=== PATIENT | female | born 1980 | race Hispanic/Latino ===

== ENCOUNTER 2018-07-08 14:10 | Emergency (ER) | payer OTHER ==
[2018-07-08] MEDS ORDERED: ZOFRAN IV ONE (14:21)
[2018-07-08] MEDS ORDERED: TORADOL IV ONE (14:21)
[2018-07-08] MEDS ORDERED: NACL 0.9% 1000 ML 1,000 ML IV ONE (14:21)
[2018-07-08 14:32] VITALS: BP 132/72
[2018-07-08 14:58] LABS: Basophils # (Auto) 0.2 K/mm3 (0.0-0.1); Basophils % (Auto) 1.3 % (0.0-1.8); Eosinophils # (Auto) 0.2 K/mm3 (0.0-0.4); Eosinophils % (Auto) 1.6 % (0.0-4.3); Hematocrit 43.3 % (30.3-42.9); Hemoglobin 13.5 gm/dl (10.1-14.3); Lymphocytes % (Auto) 26.1 % (13.4-35.0); Mean Corpuscular HGB Conc 31 % (30-34); Mean Corpuscular Volume 83 fl (79-97); Monocytes % (Auto) 8.7 % (0.0-7.3); Platelet Count 299 K/mm3 (140-440); Red Blood Count 5.25 M/mm3 (3.65-5.03); Red Cell Distribution Width 16.9 % (13.2-15.2)
[2018-07-08 14:59] LABS: Mean Corpuscular Hemoglobin 26 pg (28-32)
[2018-07-08 15:05] LABS: Bacteria,Urine 1+ /HPF (Negative); Bilirubin,Urine NEG (Negative); Blood,Urine MOD (Negative); Color,Urine Yellow (Yellow); Mucus,Urine FEW /HPF; Protein,Urine <15 mg/dL mg/dL (Negative); Urobilinogen,Urine < 2.0 mg/dL (<2.0)
[2018-07-08] MEDS ORDERED: MORPHINE IV ONE ×2 (15:07→16:04)
[2018-07-08 15:17] LABS: BUN/Creatinine Ratio 9; Blood Urea Nitrogen 6 mg/dL (7-17); Calcium 9.2 mg/dL (8.4-10.2); Hemolysis Index 20
[2018-07-08] MEDS ORDERED: MORPHINE ONE (16:09)
--- NOTE | 2018-07-08 17:04 | Emergency Department Report ---
ED Abdominal Pain HPI - General Chief Complaint: Abdominal Pain Stated Complaint: PAIN Time Seen by Provider: 07/08/18 14:20 Source: patient Mode of arrival: Ambulatory Limitations: No Limitations - History of Present Illness Initial Comments: She is a 2-year-old female who is presenting with left greater than right flank pain and suprapubic discomfort for the past day. Patient states is more she fell 5 however throughout the day she is developing worsening flank pain. Patient's has some nausea but no vomiting. Patient denies fever. Patient states it is been no dysuria but she does have some hematuria present and some urinary frequency. Patient has a history of kidney stones in the past. She states that the pain is 8 out of 10 in severity at this time. Severity scale (0 -10): 7 - Related Data Previous Rx's Medication Instructions Recorded Last Taken Type Ciprofloxacin HCl [Cipro] 500 mg PO BID #14 tablet 07/08/18 Unknown Rx Ibuprofen [Motrin] 600 mg PO Q8H PRN #20 tablet 07/08/18 Unknown Rx Phenazopyridine [Pyridium] 100 mg PO TID 2 Days tab 07/08/18 Unknown Rx traMADol [Ultram] 50 mg PO Q6HR PRN #12 tablet 07/08/18 Unknown Rx Allergies Allergy/AdvReac Type Severity Reaction Status Date / Time latex Allergy Itching Verified 07/08/18 14:28 prednisone Allergy Itching Verified 07/08/18 14:30 ED Review of Systems ROS: Stated complaint: PAIN Other details as noted in HPI Comment: All other systems reviewed and negative ED Past Medical Hx - Past Medical History Previous Medical History?: No - Surgical History Past Surgical History?: No - Medications Home Medications: Home Medications Medication Instructions Recorded Confirmed Last Taken Type Ciprofloxacin HCl [Cipro] 500 mg PO BID #14 tablet 07/08/18 Unknown Rx Ibuprofen [Motrin] 600 mg PO Q8H PRN #20 tablet 07/08/18 Unknown Rx Phenazopyridine [Pyridium] 100 mg PO TID 2 Days tab 07/08/18 Unknown Rx traMADol [Ultram] 50 mg PO Q6HR PRN #12 tablet 07/08/18 Unknown Rx ED Physical Exam - General Limitations: No Limitations General appearance: alert, in distress - Head Head exam: Present: atraumatic, normocephalic - Eye Eye exam: Present: normal appearance - ENT ENT exam: Present: mucous membranes moist - Neck Neck exam: Present: normal inspection - Respiratory Respiratory exam: Present: normal lung sounds bilaterally. Absent: respiratory distress, wheezes, rales, rhonchi - Cardiovascular Cardiovascular Exam: Present: regular rate, normal rhythm. Absent: systolic murmur, diastolic murmur, rubs, gallop - GI/Abdominal GI/Abdominal exam: Present: soft, tenderness, guarding, rebound, rigid, normal bowel sounds. Absent: distended - Extremities Exam Extremities exam: Present: normal inspection - Back Exam Back exam: Present: normal inspection, CVA tenderness (L) - Neurological Exam Neurological exam: Present: alert, oriented X3 - Psychiatric Psychiatric exam: Present: normal affect, normal mood - Skin Skin exam: Present: warm, dry, intact, normal color. Absent: rash ED Course Vital Signs 07/08/18 14:24 Temperature 97.8 F Pulse Rate 67 Respiratory 20 Rate Blood Pressure 132/72 O2 Sat by Pulse 100 Oximetry ED Medical Decision Making - Lab Data Result diagrams: 07/08/18 14:34 07/08/18 14:34 Lab Results 07/08/18 07/08/18 07/08/18 Range/Units 14:34 14:34 14:34 WBC 11.4 H (4.5-11.0) K/mm3 RBC 5.25 H (3.65-5.03) M/mm3 Hgb 13.5 (10.1-14.3) gm/dl Hct 43.3 H (30.3-42.9) % MCV 83 (79-97) fl MCH 26 L (28-32) pg MCHC 31 (30-34) % RDW 16.9 H (13.2-15.2) % Plt Count 299 (140-440) K/mm3 Lymph % (Auto) 26.1 (13.4-35.0) % [place] % (Auto) 8.7 H (0.0-7.3) % Eos % (Auto) 1.6 (0.0-4.3) % Baso % (Auto) 1.3 (0.0-1.8) % Lymph # 3.0 (1.2-5.4) K/mm3 [place] # 1.0 H (0.0-0.8) K/mm3 Eos # 0.2 (0.0-0.4) K/mm3 Baso # 0.2 H (0.0-0.1) K/mm3 Seg Neutrophils % 62.3 (40.0-70.0) % Seg Neutrophils # 7.1 (1.8-7.7) K/mm3 Sodium 143 (137-145) mmol/L Potassium 3.7 (3.6-5.0) mmol/L Chloride 101.5 (98-107) mmol/L Carbon Dioxide 25 (22-30) mmol/L Anion Gap 20 mmol/L BUN 6 L (7-17) mg/dL Creatinine 0.7 (0.7-1.2) mg/dL Estimated GFR > 60 ml/min BUN/Creatinine Ratio 9 % Glucose 85 (65-100) mg/dL Calcium 9.2 (8.4-10.2) mg/dL HCG, Qual Negative (Negative) Urine Color (Yellow) Urine Turbidity (Clear) Urine pH (5.0-7.0) Ur Specific [place] (1.003-1.030) Urine Protein (Negative) mg/dL Urine Glucose (UA) (Negative) mg/dL Urine Ketones (Negative) mg/dL Urine Blood (Negative) Urine Nitrite (Negative) Urine Bilirubin (Negative) Urine Urobilinogen (<2.0) mg/dL Ur Leukocyte Esterase (Negative) Urine WBC (Auto) (0.0-6.0) /HPF Urine RBC (Auto) (0.0-6.0) /HPF U Epithel Cells (Auto) (0-13.0) /HPF Urine Bacteria (Auto) (Negative) /HPF Urine Mucus /HPF 07/08/18 Range/Units Unknown WBC (4.5-11.0) K/mm3 RBC (3.65-5.03) M/mm3 Hgb (10.1-14.3) gm/dl Hct (30.3-42.9) % MCV (79-97) fl MCH (28-32) pg MCHC (30-34) % RDW (13.2-15.2) % Plt Count (140-440) K/mm3 Lymph % (Auto) (13.4-35.0) % [place] % (Auto) (0.0-7.3) % Eos % (Auto) (0.0-4.3) % Baso % (Auto) (0.0-1.8) % Lymph # (1.2-5.4) K/mm3 [place] # (0.0-0.8) K/mm3 Eos # (0.0-0.4) K/mm3 Baso # (0.0-0.1) K/mm3 Seg Neutrophils % (40.0-70.0) % Seg Neutrophils # (1.8-7.7) K/mm3 Sodium (137-145) mmol/L Potassium (3.6-5.0) mmol/L Chloride (98-107) mmol/L Carbon Dioxide (22-30) mmol/L Anion Gap mmol/L BUN (7-17) mg/dL Creatinine (0.7-1.2) mg/dL Estimated GFR ml/min BUN/Creatinine Ratio % Glucose (65-100) mg/dL Calcium (8.4-10.2) mg/dL HCG, Qual (Negative) Urine Color Yellow (Yellow) Urine Turbidity Slightly-cloudy (Clear) Urine pH 6.0 (5.0-7.0) Ur Specific [place] 1.012 (1.003-1.030) Urine Protein <15 mg/dl (Negative) mg/dL Urine Glucose (UA) Neg (Negative) mg/dL Urine Ketones Neg (Negative) mg/dL Urine Blood Mod (Negative) Urine Nitrite Neg (Negative) Urine Bilirubin Neg (Negative) Urine Urobilinogen < 2.0 (<2.0) mg/dL Ur Leukocyte Esterase Mod (Negative) Urine WBC (Auto) 3.0 (0.0-6.0) /HPF Urine RBC (Auto) 8.0 (0.0-6.0) /HPF U Epithel Cells (Auto) 13.0 (0-13.0) /HPF Urine Bacteria (Auto) 1+ (Negative) /HPF Urine Mucus Few /HPF - Radiology Data No evidence of renal calculi or renal obstruction. Right renal pelvis and more prominent than left of uncertain etiology. As a tiny umbilical hernia and mild fatty liver. - Medical Decision Making Is a 38-year-old female presenting with flank pain. Patient has some hematuria and evidence of mild urinary tract infection. No stones were seen at this time however the collecting system was slightly prominent as just a possible recently passed stone. Patient's pain has improved with pain meds. Critical care attestation.: If time is entered above; I have spent that time in minutes in the direct care of this critically ill patient, excluding procedure time. ED Disposition Clinical Impression: Acute cystitis Qualifiers: Hematuria presence: with hematuria Qualified Code(s): N30.01 - Acute cystitis with hematuria Disposition: TO HOME OR SELFCARE Is pt being admited?: No Does the pt Need Aspirin: No Condition: Stable Instructions: Urinary Tract Infection in Women (ED) Referrals: PRIMARY CARE [Primary Care Provider] - 3-5 Days Time of Disposition: 17:05
--- NOTE | 2018-07-09 10:27 | Cat Scan Report ---
FINAL REPORT EXAM: CT ABD AND PELVIS WO CONTRAST HISTORY: LEFT FLANK PAIN TECHNIQUE: Unenhanced stone protocol CT of the abdomen and pelvis at 2.5 millimeter axial increments. Coronal and sagittal reconstruction was also performed. PRIORS: None. FINDINGS: There is mild prominence of the right collecting system compared to the left. However, there is no evidence for renal calculi or significant hydronephrosis. No evidence for ureteral or bladder calculus is seen. No evidence for renal or bladder mass is noted. 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 There is focal area of sparing adjacent to the gallbladder fossa. The spleen, pancreas, gallbladder, and adrenal glands are unremarkable. No evidence for retroperitoneal or pelvic lymphadenopathy is seen. The bowel loops have normal caliber. No fluid collection, inflammatory change, or free air is seen within the abdomen or pelvis. The appendix is not visualized. There is a tiny periumbilical hernia containing only fat. Within the pelvis, the uterus is normal. Endometrial low-density measures 16 mm in thickness which can be normal for a premenopausal female. This should be correlated clinically. Bilateral tubal ligation clips are noted. Images through the upper abdomen include the lung bases which are expanded and clear. Bony structures show no focal abnormalities. IMPRESSION: 1. No evidence for renal calculi or renal obstruction. Right renal pelvis is more prominent than the left , of certain etiology. 2. Tiny umbilical hernia 3. Mild fatty liver 4. Endometrial stripe thickness is upper limits normal for premenopausal female which should be correlated clinically.
== END 2018-07-08 17:20 | disposition home or self-care (01) ==
LOC: ED 14:10
DX: N30.01 Acute cystitis with hematuria (principal); Z91.040 Latex allergy status; Z88.8 Allergy status to other drugs, medicaments and biological substances
CPT/HCPCS: 36415; 74176; 80048; 81001; 84703; 85025; 96361; 96374; 96375; 96376; 99284; J1885; J2270; J2405; J7030

== ENCOUNTER 2019-01-05 16:21 | Emergency (ER) | payer OTHER ==
--- NOTE | 2019-01-05 16:35 | Emergency Department Report ---
Blank Doc - Documentation Documentation: This is a 38-year-old female that presents with abdominal pain, left flank pain, and n/v with some dizziness. This initial assessment/diagnostic orders/clinical plan/treatment(s) is/are subject to change based on patient's health status, clinical progression and re- assessment by fellow clinical providers in the ED. Further treatment and workup at subsequent clinical providers discretion. Patient/guardians urged not to elope from the ED as their condition may be serious if not clinically assessed and managed. Initial orders include: 1- Patient sent to [facility] for further evaluation and treatment 2- labs 3- UA
[2019-01-05 16:37] VITALS: BP 116/82
[2019-01-05 17:00] LABS: Basophils # (Auto) 0.2 K/mm3 (0.0-0.1); Basophils % (Auto) 1.3 % (0.0-1.8); Eosinophils # (Auto) 0.2 K/mm3 (0.0-0.4); Eosinophils % (Auto) 1.7 % (0.0-4.3); Hematocrit 38.8 % (30.3-42.9); Lymphocytes # (Auto) 2.6 K/mm3 (1.2-5.4); Lymphocytes % (Auto) 21.3 % (13.4-35.0); Mean Corpuscular HGB Conc 34 % (30-34); Mean Corpuscular Volume 81 fl (79-97); Monocytes # (Auto) 0.9 K/mm3 (0.0-0.8); Monocytes % (Auto) 7.4 % (0.0-7.3); Platelet Count 349 K/mm3 (140-440); Red Blood Count 4.76 M/mm3 (3.65-5.03)
[2019-01-05] MEDS ORDERED: TORADOL IV ONE (17:15)
[2019-01-05] MEDS ORDERED: REGLAN IV ONE (17:15)
[2019-01-05] MEDS ORDERED: BENADRYL PO ONE (17:15)
[2019-01-05] MEDS ORDERED: NACL 0.9% 1000 ML 1,000 ML IV ONE (17:15)
[2019-01-05 18:02] LABS: Alanine Aminotransferase 24 units/L (7-56); BUN/Creatinine Ratio 16; Blood Urea Nitrogen 11 mg/dL (7-17); Calcium 9.3 mg/dL (8.4-10.2); Hemolysis Index 5
[2019-01-05 18:03] LABS: Bilirubin,Direct < 0.2 mg/dL (0-0.2)
--- NOTE | 2019-01-05 18:33 | Emergency Department Report ---
<JASMIN MORALES - Last Filed: 01/06/19 04:37> ED Abdominal Pain HPI - General Chief Complaint: Abdominal Pain Stated Complaint: LFT SIDE SHARP PAIN/DIZZY Time Seen by Provider: 01/05/19 16:34 Source: patient Mode of arrival: Wheelchair Limitations: No Limitations - History of Present Illness Initial Comments: Pt is a 38 yo female who presents with c/o left sided flank pain radiating to the LLQ that began 1 week ago. The patient states she has associated dizziness, lightheadedness, and a right sided PEDERSON. She has a hx of migraines and is on remeron, she states this PEDERSON feels similar to previous migraines. She states she did take naproxen with some relief. She denies any N/V or fever. She does not report any numbness, weakness, vision disturbances, or speech disturbance. The patient has a hx of frequent kidney stones and sees Dr. Lowery. She states she has passed previous stones on her own with no intervention. Severity scale (0 -10): 10 - Related Data Previous Rx's Medication Instructions Recorded Last Taken Type Ibuprofen [Motrin 600 MG tab] 600 mg PO Q8H PRN #20 tablet 07/08/18 Unknown Rx traMADol [Ultram 50 MG tab] 50 mg PO Q6HR PRN #12 tablet 07/08/18 Unknown Rx Sulfamethoxazole/Trimethoprim 1 each PO BID 3 Days #6 tablet 01/05/19 Unknown Rx [Bactrim DS TAB] Allergies Allergy/AdvReac Type Severity Reaction Status Date / Time latex Allergy Itching Verified 07/08/18 14:28 prednisone Allergy Itching Verified 07/08/18 14:30 ED Review of Systems Comment: All other systems reviewed and negative ED Past Medical Hx - Past Medical History Hx Kidney Stones: Yes Additional medical history: IC - Surgical History Past Surgical History?: No - Social History Smoking Status: Never Smoker Substance Use Type: None - Medications Home Medications: Home Medications Medication Instructions Recorded Confirmed Last Taken Type Ibuprofen [Motrin 600 MG tab] 600 mg PO Q8H PRN #20 tablet 07/08/18 Unknown Rx traMADol [Ultram 50 MG tab] 50 mg PO Q6HR PRN #12 tablet 07/08/18 Unknown Rx Sulfamethoxazole/Trimethoprim 1 each PO BID 3 Days #6 tablet 04/08/19 Unknown Rx [Bactrim DS TAB] ED Physical Exam - General Limitations: No Limitations General appearance: alert, in no apparent distress - Head Head exam: Present: atraumatic, normocephalic - Eye Eye exam: Present: normal appearance - ENT ENT exam: Present: mucous membranes dry (mildly) - Respiratory Respiratory exam: Present: normal lung sounds bilaterally. Absent: respiratory distress, wheezes, rales, rhonchi, stridor, chest wall tenderness, accessory muscle use, decreased breath sounds, prolonged expiratory - Cardiovascular Cardiovascular Exam: Present: regular rate, normal rhythm, normal heart sounds. Absent: systolic murmur, diastolic murmur, rubs, gallop - GI/Abdominal GI/Abdominal exam: Present: soft, tenderness (Left CVAT, LLQ tenderness ), normal bowel sounds. Absent: distended, guarding, rebound, rigid - Neurological Exam Neurological exam: Present: alert, oriented X3, CN II-XII intact, normal gait. Absent: motor sensory deficit - Psychiatric Psychiatric exam: Present: normal affect, normal mood - Skin Skin exam: Present: warm, dry, intact ED Medical Decision Making - Lab Data Result diagrams: 01/05/19 16:39 01/05/19 16:39 Lab Results 01/05/19 01/05/19 01/05/19 Range/Units 16:39 16:39 16:39 WBC 12.2 H (4.5-11.0) K/mm3 RBC 4.76 (3.65-5.03) M/mm3 Hgb 13.0 (10.1-14.3) gm/dl Hct 38.8 (30.3-42.9) % MCV 81 (79-97) fl MCH 27 L (28-32) pg MCHC 34 (30-34) % RDW 16.0 H (13.2-15.2) % Plt Count 349 (140-440) K/mm3 Lymph % (Auto) 21.3 (13.4-35.0) % [place] % (Auto) 7.4 H (0.0-7.3) % Eos % (Auto) 1.7 (0.0-4.3) % Baso % (Auto) 1.3 (0.0-1.8) % Lymph # 2.6 (1.2-5.4) K/mm3 [place] # 0.9 H (0.0-0.8) K/mm3 Eos # 0.2 (0.0-0.4) K/mm3 Baso # 0.2 H (0.0-0.1) K/mm3 Seg Neutrophils % 68.3 (40.0-70.0) % Seg Neutrophils # 8.4 H (1.8-7.7) K/mm3 Sodium 137 (137-145) mmol/L Potassium 4.3 (3.6-5.0) mmol/L Chloride 100.8 (98-107) mmol/L Carbon Dioxide 23 (22-30) mmol/L Anion Gap 18 mmol/L BUN 11 (7-17) mg/dL Creatinine 0.7 (0.7-1.2) mg/dL Estimated GFR > 60 ml/min BUN/Creatinine Ratio 16 % Glucose 124 H (65-100) mg/dL Calcium 9.3 (8.4-10.2) mg/dL Total Bilirubin 0.20 (0.1-1.2) mg/dL Direct Bilirubin < 0.2 (0-0.2) mg/dL Indirect Bilirubin 0.0 mg/dL AST 17 (5-40) units/L ALT 24 (7-56) units/L Alkaline Phosphatase 82 (35-129) units/L Total Protein 7.7 (6.3-8.2) g/dL Albumin 4.0 (3.9-5) g/dL Albumin/Globulin Ratio 1.1 % Lipase 38 (13-60) units/L HCG, Qual Negative (Negative) Vital Signs 01/05/19 01/05/19 16:35 18:00 Temperature 97.8 F Pulse Rate 98 H Respiratory 18 22 Rate Blood Pressure 116/82 O2 Sat by Pulse 97 Oximetry - Medical Decision Making Pt is a 38 yo female who presents with c/o left sided flank pain radiating to the LLQ that began 1 week ago. The patient states she has associated dizziness, lightheadedness, and a right sided PEDERSON. She has a hx of migraines and is on remeron, she states this PEDERSON feels similar to previous migraines. She states she did take naproxen with some relief. She denies any N/V or fever. She does not report any numbness, weakness, vision disturbances, or speech disturbance. The patient has a hx of frequent kidney stones and sees Dr. Lowery. She states she has passed previous stones on her own with no intervention. Labs show a mildly elevated WBC of 12 otherwise normal. Pt states her pain has resolved s/p medications. She states she went to the bathroom and believes she passed a stone because her pain resolved. Pt is declining to have a CT abd/pelvis. Pt did give a urine sample and it was sent to the lab, the lab does not know where the urine sample is. Pt does not want to wait to have urine sample resent, pt would rather receive the prescription for treatment and take it if she begins to experience any symptoms. Pt will follow up with her urologist Dr. Lowery in the next 2-3 days, pt will have a UA completed in office. Will also have pt follow up with he r PCP in the next 2-3 days. Advised to return to the emergency room for any new or worsening symptoms. - Differential Diagnosis UTI, nephrolithiasis, abdominal pain ED Disposition Clinical Impression: Flank pain Abdominal pain Qualifiers: Abdominal location: left lower quadrant Qualified Code(s): R10.32 - Left lower quadrant pain Disposition: - TO HOME OR SELFCARE Is pt being admited?: No Does the pt Need Aspirin: No Condition: Stable Instructions: Abdominal Pain (ED), Flank Pain (ED) Additional Instructions: Follow up with your urologist and PCP in the next 2-3 days. Return to the emergency room for any new or worsening symptoms. If begin to feel symptoms of a UTI such as pelvic pressure, urinary frequency, burning upon urination please begin taking Bactrim as prescribed. Prescriptions: Sulfamethoxazole/Trimethoprim [Bactrim DS TAB] 1 each PO BID 3 Days #6 tablet Referrals: VIJAYA MCKEON MD [Primary Care Provider] - 2-3 Days SARAH LOWERY MD [Referring] - 2-3 Days Time of Disposition: 19:09 Print Language: BURKIN[place] <CELESTE HADDAD - Last Filed: 01/09/19 04:52> ED Review of Systems ROS: Stated complaint: LFT SIDE SHARP PAIN/DIZZY Other details as noted in HPI ED Course Vital Signs 01/05/19 01/05/19 01/05/19 16:35 18:00 19:25 Temperature 97.8 F Pulse Rate 98 H 94 H Respiratory 18 22 17 Rate Blood Pressure 116/82 O2 Sat by Pulse 97 99 Oximetry - Reevaluation(s) Reevaluation #1: 01/09/19 04:51 I am signing this chart for administrative purposes. While this patient was present in the emergency room, I was here the entire time of her clinical course, and was available for consultation and questions, should the physician assistant food service director have had any. The medical decision making was not specifically discussed with me while the patient was here in this emergency room. ED Medical Decision Making - Lab Data Result diagrams: 01/05/19 16:39 01/05/19 16:39 Critical care attestation.: If time is entered above; I have spent that time in minutes in the direct care of this critically ill patient, excluding procedure time. ED Disposition Is pt being admited?: No Does the pt Need Aspirin: No
== END 2019-01-05 19:25 | disposition home or self-care (01) ==
LOC: ED 16:21
DX: R10.9 Unspecified abdominal pain (principal); R42 Dizziness and giddiness; R51 Headache; Z87.442 Personal history of urinary calculi; Z91.040 Latex allergy status; Z88.8 Allergy status to other drugs, medicaments and biological substances
CPT/HCPCS: 36415; 80048; 80076; 83690; 84703; 85025; 96361; 96374; 96375; 99283; J1885; J2765; J7030

== ENCOUNTER 2019-01-14 19:33 | Observation (INO) | payer OTHER ==
[2019-01-14] MEDS ORDERED: ZOFRAN IV ONE (19:47)
[2019-01-14] MEDS ORDERED: TORADOL IV ONE (19:47)
[2019-01-14] MEDS ORDERED: NACL 0.9% 1000 ML 1,000 ML IV ONE ×2 (19:47→20:35)
[2019-01-14 20:29] LABS: Basophils % (Auto) 0.2 % (0.0-1.8); Eosinophils # (Auto) 0.1 K/mm3 (0.0-0.4); Eosinophils % (Auto) 0.9 % (0.0-4.3); Hematocrit 37.8 % (30.3-42.9); Lymphocytes # (Auto) 2.8 K/mm3 (1.2-5.4); Lymphocytes % (Auto) 20.7 % (13.4-35.0); Mean Corpuscular HGB Conc 32 % (30-34); Mean Corpuscular Volume 82 fl (79-97); Monocytes # (Auto) 1.2 K/mm3 (0.0-0.8); Monocytes % (Auto) 8.9 % (0.0-7.3); Platelet Count 312 K/mm3 (140-440); Red Cell Distribution Width 15.7 % (13.2-15.2)
[2019-01-14 20:30] LABS: Bilirubin,Urine NEG (Negative); Blood,Urine MOD (Negative); Color,Urine Yellow (Yellow); Mucus,Urine 2+ /HPF; Protein,Urine <15 mg/dL mg/dL (Negative); Urobilinogen,Urine < 2.0 mg/dL (<2.0)
[2019-01-14] MEDS ORDERED: DILAUDID IV ONE ×2 (20:36→23:03)
--- NOTE | 2019-01-14 20:37 | Emergency Department Report ---
ED General Adult HPI - General Chief complaint: Abdominal Pain Stated complaint: ABD PAIN Time Seen by Provider: 01/14/19 20:27 Source: patient, RN notes reviewed, old records reviewed Mode of arrival: Wheelchair Limitations: No Limitations - History of Present Illness Initial comments: This is a 38-year-old female. The patient is not known to this provider previously clinically. The patient has a past medical history of interstitial cystitis, renal colic. The patient presents to the emergency room with the complaint of sudden sharp onset of right lower quadrant pain and pelvic pain which started at 11:00 AM on the preceding day. The pain is constant. It is sharp. It really does not radiate anywhere. It increases with palpation. It decreases with rest, position and pain medication. There is nausea but no vomiting. The patient denies irritative, obstructive urinary symptoms. She reports fevers over the weekend to 101. She denies constipation. Patient has chronic dyspareunia. The patient reports that she's had pain similar to this in the past, and brought her to the attention of her [employer] doctor. She reports that her [employer] doctor attempted a trial of oral outpatient contraceptives, which really had no effect. She's had no formal investigation for endometriosis or abdomen mild cyst that she can recall. She reports this feels similar to her prior episodes of pain over the past year, but today's episode is the most intense that she's had. -: Sudden Location: abdomen, pelvis Radiation: non-radiation Severity scale (0 -10): 10 Quality: aching Consistency: constant Improves with: rest Worsens with: movement - Related Data Previous Rx's Medication Instructions Recorded Last Taken Type Promethazine [Phenergan TAB] 25 mg PO Q8HR PRN #10 tab 01/15/19 Unknown Rx Allergies Allergy/AdvReac Type Severity Reaction Status Date / Time latex Allergy Itching Verified 07/08/18 14:28 prednisone Allergy Itching Verified 07/08/18 14:30 ED Review of Systems ROS: Stated complaint: ABD PAIN Other details as noted in HPI Constitutional: malaise. denies: fever Eyes: denies: eye discharge ENT: denies: epistaxis Respiratory: denies: cough Cardiovascular: denies: chest pain Gastrointestinal: abdominal pain, nausea Musculoskeletal: denies: arthralgia Skin: denies: lesions Neurological: weakness Psychiatric: anxiety ED Past Medical Hx - Past Medical History Hx Kidney Stones: Yes Additional medical history: IC - Social History Smoking Status: Never Smoker Substance Use Type: None - Medications Home Medications: Home Medications Medication Instructions Recorded Confirmed Last Taken Type Promethazine [Phenergan TAB] 25 mg PO Q8HR PRN #10 tab 01/15/19 Unknown Rx ED Physical Exam - General Limitations: No Limitations General appearance: alert, in distress, obese - Head Head exam: Present: atraumatic, normocephalic - Eye Eye exam: Present: normal appearance, EOMI. Absent: nystagmus - ENT ENT exam: Present: normal exam, normal orophraynx, mucous membranes moist, normal external ear exam - Neck Neck exam: Present: normal inspection, full ROM. Absent: tenderness, meningismus - Respiratory Respiratory exam: Present: normal lung sounds bilaterally. Absent: respiratory distress - Cardiovascular Cardiovascular Exam: Present: regular rate, normal rhythm, normal heart sounds. Absent: bradycardia, tachycardia, irregular rhythm, systolic murmur, diastolic murmur, rubs, gallop - GI/Abdominal GI/Abdominal exam: Present: soft, tenderness, guarding, other (there is right lower quadrant tenderness.). Absent: distended, rebound, rigid, pulsatile mass - External exam: Present: normal external exam Speculum exam: Absent: cervical discharge Bi-manual exam: Present: cervical motion tendernes, adnexal tenderness, uterine tenderness, other (chaperoned by nurse Godfrey Giraldo) - Extremities Exam Extremities exam: Present: normal inspection, full ROM, other (2+ pulses noted in the bilateral upper, lower extremities. Compartments soft. No long bony tenderness. The pelvis is stable.). Absent: pedal edema, joint swelling, calf tenderness - Back Exam Back exam: Present: normal inspection, full ROM, CVA tenderness (R). Absent: tenderness, paraspinal tenderness, vertebral tenderness - Neurological Exam Neurological exam: Present: alert, other (Extraocular movements intact. Tongue midline. No facial droop. Facial sensation intact to light touch in the V1, V2, V3 distribution bilaterally. 5 and 5 strength in 4 extremities.. Sensation is intact to light touch in 4 extremities.). Absent: motor sensory deficit - Psychiatric Psychiatric exam: Present: anxious - Skin Skin exam: Present: warm, dry, intact, normal color. Absent: rash ED Course Vital Signs 01/14/19 01/14/19 01/14/19 19:47 20:15 21:00 Temperature 98.6 F Pulse Rate 89 80 78 Respiratory 16 15 9 L Rate Blood Pressure 137/90 143/98 Blood Pressure 142/102 [Right] O2 Sat by Pulse 100 98 100 Oximetry 01/15/19 01/15/19 01/15/19 00:00 00:03 01:01 Temperature Pulse Rate 78 74 68 Respiratory 12 9 L 10 L Rate Blood Pressure 127/97 127/97 129/87 Blood Pressure [Right] O2 Sat by Pulse 100 100 98 Oximetry 01/15/19 01/15/19 01/15/19 02:00 03:00 03:21 Temperature Pulse Rate 64 76 71 Respiratory 9 L 10 L 11 L Rate Blood Pressure 138/81 123/76 138/81 Blood Pressure [Right] O2 Sat by Pulse 98 96 96 Oximetry 01/15/19 01/15/19 03:31 03:49 Temperature Pulse Rate 70 Respiratory 14 20 Rate Blood Pressure 138/81 Blood Pressure [Right] O2 Sat by Pulse 98 95 Oximetry - Reevaluation(s) Reevaluation #1: 01/15/19 00:49 Differential diagnosis, including not limited to: Appendicitis, colitis, diverticulitis, renal colic, pelvic inflammatory disease, urinary tract infection, endometriosis, adenomyosis, ovarian torsion Assessment and plan: 38-year-old female with episodic episodes of lower abdominal pain, with the most intense episode she's had 5 report. She is afebrile with borderline tachycardia, with a leukocytosis. She is quite tender in her right lower quadrant and right adnexa. The CT scan of her abdomen and pelvis did not demonstrate any acute entity that would require emergent general surgical intervention. Her urinalysis and history are not consistent with interstitial cystitis, or urinary tract infection. She had an exquisitely tender right adnexa, and as per verbal report from the human performance technologist, patient not able to tolerate endovaginal ultrasound examination, and therefore her right ovary was not visualized. The left ovary was visualized and did not demonstrate ovarian torsion. Discussed with general surgery on-call, Dr. Radha Beaulieu, who is agreeable to following consultation for intractable abdominal pain. Did not recommend antibiotic therapy at this time. Based off of the history and physical, I clinically favor a gynecologic etiology to the patient's pain. Given her episodic pain, suspect endometriosis or chronic pelvic pain syndrome, however ovarian torsion is not excluded. I have requested an emergent gynecologic consultation, and my colleague, Dr. Hi Lozoya, of the gynecology department, is currently in the emergency room, evaluating the patient, and I'm awaiting his recommendations. I have discussed with the patient that based off of the severe intractable nature of her pain, I will recommend admission to the hospital for pain control, serial abdominal exams, and further management as recommended by the consulting gynecology and general surgery staff. Reevaluation #2: 01/15/19 01:24 Patient is seen and evaluated by by gynecology colleague, Dr. Lozoya. He does not recommend emergency laparoscopy at this time. He is in agreement with admission to the hospital for observation and pain control. Dr. Ordoñez, the hospital physician, has accepted the patient to the medical service. ED Medical Decision Making - Lab Data Result diagrams: 01/15/19 04:56 01/15/19 04:56 Vital Signs 01/14/19 01/14/19 19:47 20:15 Temperature 98.6 F Pulse Rate 89 80 Respiratory 16 15 Rate Blood Pressure 137/90 Blood Pressure 142/102 [Right] O2 Sat by Pulse 100 98 Oximetry Lab Results 01/14/19 01/14/19 01/14/19 Range/Units 20:18 20:19 20:19 WBC 13.4 H (4.5-11.0) K/mm3 RBC 4.60 (3.65-5.03) M/mm3 Hgb 12.0 (10.1-14.3) gm/dl Hct 37.8 (30.3-42.9) % MCV 82 (79-97) fl MCH 26 L (28-32) pg MCHC 32 (30-34) % RDW 15.7 H (13.2-15.2) % Plt Count 312 (140-440) K/mm3 Lymph % (Auto) 20.7 (13.4-35.0) % Wallace % (Auto) 8.9 H (0.0-7.3) % Eos % (Auto) 0.9 (0.0-4.3) % Baso % (Auto) 0.2 (0.0-1.8) % Lymph # 2.8 (1.2-5.4) K/mm3 Wallace # 1.2 H (0.0-0.8) K/mm3 Eos # 0.1 (0.0-0.4) K/mm3 Baso # 0.0 (0.0-0.1) K/mm3 Seg Neutrophils % 69.3 (40.0-70.0) % Seg Neutrophils # 9.3 H (1.8-7.7) K/mm3 PT (12.2-14.9) Sec. INR (0.87-1.13) APTT (24.2-36.6) Sec. Sodium 136 L (137-145) mmol/L Potassium 3.8 (3.6-5.0) mmol/L Chloride 100.1 (98-107) mmol/L Carbon Dioxide 23 (22-30) mmol/L Anion Gap 17 mmol/L BUN 9 (7-17) mg/dL Creatinine 0.7 (0.7-1.2) mg/dL Estimated GFR > 60 ml/min BUN/Creatinine Ratio 13 % Glucose 104 H (65-100) mg/dL Lactic Acid (0.7-2.0) mmol/L Calcium 9.2 (8.4-10.2) mg/dL Total Bilirubin 0.20 (0.1-1.2) mg/dL AST 24 (5-40) units/L ALT 29 (7-56) units/L Alkaline Phosphatase 63 (35-129) units/L Total Creatine Kinase (30-135) units/L Total Protein 7.2 (6.3-8.2) g/dL Albumin 3.8 L (3.9-5) g/dL Albumin/Globulin Ratio 1.1 % HCG, Quant (0-4) mIU/mL Urine Color Yellow (Yellow) Urine Turbidity Clear (Clear) Urine pH 6.0 (5.0-7.0) Ur Specific Alexander 1.034 H (1.003-1.030) Urine Protein <15 mg/dl (Negative) mg/dL Urine Glucose (UA) Neg (Negative) mg/dL Urine Ketones Neg (Negative) mg/dL Urine Blood Mod (Negative) Urine Nitrite Neg (Negative) Urine Bilirubin Neg (Negative) Urine Urobilinogen < 2.0 (<2.0) mg/dL Ur Leukocyte Esterase Neg (Negative) Urine WBC (Auto) 1.0 (0.0-6.0) /HPF Urine RBC (Auto) 17.0 (0.0-6.0) /HPF U Epithel Cells (Auto) 2.0 (0-13.0) /HPF Urine Mucus 2+ /HPF 01/14/19 01/14/19 01/14/19 Range/Units 20:19 22:50 22:50 WBC (4.5-11.0) K/mm3 RBC (3.65-5.03) M/mm3 Hgb (10.1-14.3) gm/dl Hct (30.3-42.9) % MCV (79-97) fl MCH (28-32) pg MCHC (30-34) % RDW (13.2-15.2) % Plt Count (140-440) K/mm3 Lymph % (Auto) (13.4-35.0) % Wallace % (Auto) (0.0-7.3) % Eos % (Auto) (0.0-4.3) % Baso % (Auto) (0.0-1.8) % Lymph # (1.2-5.4) K/mm3 Wallace # (0.0-0.8) K/mm3 Eos # (0.0-0.4) K/mm3 Baso # (0.0-0.1) K/mm3 Seg Neutrophils % (40.0-70.0) % Seg Neutrophils # (1.8-7.7) K/mm3 PT 13.2 (12.2-14.9) Sec. INR 0.95 (0.87-1.13) APTT 25.4 (24.2-36.6) Sec. Sodium (137-145) mmol/L Potassium (3.6-5.0) mmol/L Chloride (98-107) mmol/L Carbon Dioxide (22-30) mmol/L Anion Gap mmol/L BUN (7-17) mg/dL Creatinine (0.7-1.2) mg/dL Estimated GFR ml/min BUN/Creatinine Ratio % Glucose (65-100) mg/dL Lactic Acid 1.10 (0.7-2.0) mmol/L Calcium (8.4-10.2) mg/dL Total Bilirubin (0.1-1.2) mg/dL AST (5-40) units/L ALT (7-56) units/L Alkaline Phosphatase (35-129) units/L Total Creatine Kinase (30-135) units/L Total Protein (6.3-8.2) g/dL Albumin (3.9-5) g/dL Albumin/Globulin Ratio % HCG, Quant < 2 (0-4) mIU/mL Urine Color (Yellow) Urine Turbidity (Clear) Urine pH (5.0-7.0) Ur Specific Alexander (1.003-1.030) Urine Protein (Negative) mg/dL Urine Glucose (UA) (Negative) mg/dL Urine Ketones (Negative) mg/dL Urine Blood (Negative) Urine Nitrite (Negative) Urine Bilirubin (Negative) Urine Urobilinogen (<2.0) mg/dL Ur Leukocyte Esterase (Negative) Urine WBC (Auto) (0.0-6.0) /HPF Urine RBC (Auto) (0.0-6.0) /HPF U Epithel Cells (Auto) (0-13.0) /HPF Urine Mucus /HPF 01/14/19 Range/Units 22:50 WBC (4.5-11.0) K/mm3 RBC (3.65-5.03) M/mm3 Hgb (10.1-14.3) gm/dl Hct (30.3-42.9) % MCV (79-97) fl MCH (28-32) pg MCHC (30-34) % RDW (13.2-15.2) % Plt Count (140-440) K/mm3 Lymph % (Auto) (13.4-35.0) % Wallace % (Auto) (0.0-7.3) % Eos % (Auto) (0.0-4.3) % Baso % (Auto) (0.0-1.8) % Lymph # (1.2-5.4) K/mm3 Wallace # (0.0-0.8) K/mm3 Eos # (0.0-0.4) K/mm3 Baso # (0.0-0.1) K/mm3 Seg Neutrophils % (40.0-70.0) % Seg Neutrophils # (1.8-7.7) K/mm3 PT (12.2-14.9) Sec. INR (0.87-1.13) APTT (24.2-36.6) Sec. Sodium (137-145) mmol/L Potassium (3.6-5.0) mmol/L Chloride (98-107) mmol/L Carbon Dioxide (22-30) mmol/L Anion Gap mmol/L BUN (7-17) mg/dL Creatinine (0.7-1.2) mg/dL Estimated GFR ml/min BUN/Creatinine Ratio % Glucose (65-100) mg/dL Lactic Acid (0.7-2.0) mmol/L Calcium (8.4-10.2) mg/dL Total Bilirubin (0.1-1.2) mg/dL AST (5-40) units/L ALT (7-56) units/L Alkaline Phosphatase (35-129) units/L Total Creatine Kinase 36 (30-135) units/L Total Protein (6.3-8.2) g/dL Albumin (3.9-5) g/dL Albumin/Globulin Ratio % HCG, Quant (0-4) mIU/mL Urine Color (Yellow) Urine Turbidity (Clear) Urine pH (5.0-7.0) Ur Specific Alexander (1.003-1.030) Urine Protein (Negative) mg/dL Urine Glucose (UA) (Negative) mg/dL Urine Ketones (Negative) mg/dL Urine Blood (Negative) Urine Nitrite (Negative) Urine Bilirubin (Negative) Urine Urobilinogen (<2.0) mg/dL Ur Leukocyte Esterase (Negative) Urine WBC (Auto) (0.0-6.0) /HPF Urine RBC (Auto) (0.0-6.0) /HPF U Epithel Cells (Auto) (0-13.0) /HPF Urine Mucus /HPF - EKG Data -: EKG Interpreted by Mo EKG shows normal: sinus rhythm, axis, intervals, QRS complexes, ST-T waves - EKG Data When compared to previous EKG there are: previous EKG unavailable - Radiology Data Radiology results: report reviewed, image reviewed Print Report Referring Physician: CELESTE HADDAD Patient Name: JOE JORDAN Date of : 1980 Sex: Female Report Date: 2019-01-14 Report Status: Finalized Findings [facility] [address] [id number] Cat Scan Report Signed Patient: JOE JORDAN MR#: [id number] : 1980 Acct:[id number] Age/Sex: 38 / F ADM Date: 01/14/19 Loc: ED Attending Dr: Ordering Physician: CELESTE HADDAD MD Date of Service: 01/14/19 Procedure(s): CT abdomen pelvis wo/w con Accession Number(s): [id number] cc: CELESTE HADDAD MD PROCEDURE: CT ABDOMEN PELVIS WO/W CON TECHNIQUE: Computerized axial tomography of the abdomen and pelvis was performed before and after the IV injection of 100 mL iodinated nonionic contrast. Automated exposure control, adjustment of mA and/or kV according to patient size, or iterative reconstruction dose optimization techniques were utilized. CT DOSE LENGTH PRODUCT: 1678.1 mGycm HISTORY: rlq pain COMPARISONS: Noncontrast CT, 07/08/2018 . FINDINGS: Visualized lower thorax: No significant abnormality. Liver: There is diffuse low-attenuation of the liver, compatible with fatty infiltration. There is an enhancing lesion in the posterior right hepatic lobe, which measures up to 3 cm, not fully evaluated. Spleen: Normal size and attenuation. Gallbladder and biliary system: Normal. Pancreas: Normal. Adrenals: Normal. Kidneys: Nonobstructing 2 mm left kidney lower pole calculus. GI tract: The appendix is visualized and does not appear inflamed. No bowel obstruction or inflammation . Lymph nodes and mesentery: Normal. Vasculature: Normal.. Bladder: Normal. Reproductive organs: Bilateral tubal ligation clips are present. Peritoneum: No free fluid. Musculoskeletal structures: No significant abnormality. Other: None . IMPRESSION: Nonobstructing left renal calculus. No acute inflammatory process. Enhancing lesion in the right hepatic lobe, measuring up to 3 cm, not fully evaluated. Fatty infiltration of the liver. This document is electronically signed by Mar Walker MD., January 14 2019 10:54:04 PM ET Transcribed By: [facility] Dictated By: MAR WALKER M.D. Electronically Auth enticated By: MAR WALKER M.D. Signed Date/Time: 01/14/19 7469 Print Report Referring Physician: CELESTE HADDAD Patient Name: JOE JORDAN Date of : 1980 Sex: Female Report Date: 2019-01-14 Report Status: Finalized Findings [facility] [address] [place] [address] Ultrasound Report Signed Patient: JOE JORDAN MR#: [id number] : 1980 Acct:[id number] Age/Sex: 38 / F ADM Date: 01/14/19 Loc: ED Attending Dr: Ordering Physician: CELESTE HADDAD MD Date of Service: 01/14/19 Procedure(s): US transvaginal Accession Number(s): [id number] cc: CELESTE HADDAD MD PROCEDURE: US TRANSVAGINAL TECHNIQUE: Transvaginal pelvic ultrasound was performed with additional color and pulsed Doppler imaging HISTORY: pelvic pain COMPARISONS: None FINDINGS: The uterus is anteverted measuring 9.0 x 4.7 x 5.9 cm. No uterine masses are identified. Diffuse cystic change seen in the region of the cervix. There appear to be numerous nabothian cysts present, the largest measures 1.2 cm. Endometrial stripe is mildly thickened although appears homogeneous. This fragment measures approximately 1.5 cm. No fluid is seen in the endometrial canal or in the cul-de-sac. Right ovary was not visualized. No abnormal adnexal masses are seen on the right. Left ovary measures 2.4 x 2.3 x 2.2 cm. With pulse Doppler imaging arterial and venous flow visualized in the left ovary. IMPRESSION: Multiple nabothian cysts visualized as described. The largest measures 1.2 cm. Endometrial stripe is mildly thickened although otherwise is unremarkable.. Right ovary is not visualized. No abnormal adnexal masses are seen in the right. Left ovary is unremarkable. This document is electronically signed by Vincent Graham MD., January 14 2019 11:45:37 PM ET Transcribed By: [facility] Dictated By: VINCENT GRAHAM MD Electronically Authenticated By: VINCENT GRAHAM MD Signed Date/Time: 01/14/19 5651 Critical care attestation.: If time is entered above; I have spent that time in minutes in the direct care of this critically ill patient, excluding procedure time. ED Disposition Clinical Impression: Intractable right lower quadrant abdominal pain Disposition: [id number] OP ADMIT IP TO THIS HOSP Is pt being admited?: Yes Condition: Good
[2019-01-14 20:44] LABS: Alanine Aminotransferase 29 units/L (7-56); Albumin 3.8 g/dL (3.9-5); BUN/Creatinine Ratio 13; Blood Urea Nitrogen 9 mg/dL (7-17); Calcium 9.2 mg/dL (8.4-10.2); Hemolysis Index 10
--- NOTE | 2019-01-14 22:55 | Cat Scan Report ---
PROCEDURE: CT ABDOMEN PELVIS WO/W CON TECHNIQUE: Computerized axial tomography of the abdomen and pelvis was performed before and after th e IV injection of 100 mL iodinated nonionic contrast. Automated exposure control, adjustment of mA an d/or kV according to patient size, or iterative reconstruction dose optimization techniques were util ized. CT DOSE LENGTH PRODUCT: 1678.1 mGycm HISTORY: rlq pain COMPARISONS: Noncontrast CT, 07/08/2018 . FINDINGS: Visualized lower thorax: No significant abnormality. Liver: There is diffuse low-attenuation of the liver, compatible with fatty infiltration. There is an enhancing lesion in the posterior right hepatic lobe, which measures up to 3 cm, not fully evaluated . Spleen: Normal size and attenuation. Gallbladder and biliary system: Normal. Pancreas: Normal. Adrenals: Normal. Kidneys: Nonobstructing 2 mm left kidney lower pole calculus. GI tract: The appendix is visualized and does not appear inflamed. No bowel obstruction or inflammat ion . Lymph nodes and mesentery: Normal. Vasculature: Normal.. Bladder: Normal. Reproductive organs: Bilateral tubal ligation clips are present. Peritoneum: No free fluid. Musculoskeletal structures: No significant abnormality. Other: None . IMPRESSION: Nonobstructing left renal calculus. No acute inflammatory process. Enhancing lesion in the right hepatic lobe, measuring up to 3 cm, not fully evaluated. Fatty infiltration of the liver. This document is electronically signed by Mar Walker MD., January 14 2019 10:54:04 PM ET
[2019-01-14] MEDS ORDERED: XYLOCAINE CARDIAC IV ONE (23:26)
[2019-01-14] MEDS ORDERED: SUBLIMAZE IV ONE (23:26)
[2019-01-14] MEDS ORDERED: NACL 0.9% 100 ML ONE (23:38)
--- NOTE | 2019-01-14 23:40 | Ultrasound Report ---
PROCEDURE: US PELVIS DUPLEX DOPPLER COMP TECHNIQUE: Real-time transabdominal sonography in multiple planes of the pelvis was performed with i mage documentation. Grayscale, color flow Doppler imaging and velocity spectral waveform analysis of the ovaries was employed (duplex imaging). HISTORY: pelvic pain COMPARISONS: None . FINDINGS: UTERUS Size: 9 x 4.7 x 5.9 cm. Endometrial thickness: 14.9 mm. Orientation: anteverted. Cervix: Normal. There are multiple nabothian cysts. Fibroids/masses: None. RIGHT Ovary: Not identified. LEFT Ovary: 2.4 x 2.3 x 2.3 cm. Appearance: Normal. Doppler images: Normal spectral waveforms and color flow images of the arterial inflow and venous out flow.. Pelvic fluid: None. IMPRESSION: Normal uterus and left ovary. There is no left ovarian torsion. The right ovary is not i dentified.. This document is electronically signed by Kevin Burdick MD., January 14 2019 11:38:45 PM ET
--- NOTE | 2019-01-14 23:47 | Ultrasound Report ---
PROCEDURE: US TRANSVAGINAL TECHNIQUE: Transvaginal pelvic ultrasound was performed with additional color and pulsed Doppler [place] HISTORY: pelvic pain COMPARISONS: None FINDINGS: The uterus is anteverted measuring 9.0 x 4.7 x 5.9 cm. No uterine masses are identified. Diffuse cyst ic change seen in the region of the cervix. There appear to be numerous nabothian cysts present, the largest measures 1.2 cm. Endometrial stripe is mildly thickened although appears homogeneous. This fr agment measures approximately 1.5 cm. No fluid is seen in the endometrial canal or in the cul-de-sac. Right ovary was not visualized. No abnormal adnexal masses are seen on the right. Left ovary measure s 2.4 x 2.3 x 2.2 cm. With pulse Doppler imaging arterial and venous flow visualized in the left ovar y. IMPRESSION: Multiple nabothian cysts visualized as described. The largest measures 1.2 cm. Endometrial stripe is mildly thickened although otherwise is unremarkable.. Right ovary is not visualized. No abnormal adnexal masses are seen in the right. Left ovary is unrema rkable. This document is electronically signed by Vincent Shore MD., January 14 2019 11:45:37 PM ET
[2019-01-14 23:49] LABS: INR 0.95 (0.87-1.13); Partial Thromboplastin Time 25.4 Sec. (24.2-36.6)
--- NOTE | 2019-01-15 01:10 | Consultation ---
History of Present Illness Consult date: 01/15/19 Requesting physician: CELESTE HADDAD Reason for consult: pelvic pain History of present illness: 38-year-old female para 3003 with last menstrual period was approximately 2 weeks ago. Patient presented to the emergency room with history of having diffuse abdominal pelvic pain over the past approximately 7-10 days which she says a low grade fever. Patient does have history of renal stones but states this pain is not consistent with her normal pain is by her kidney stones. Patient seen by primary care physician last week with no clear diagnosis for pain. Patient's pain as waxing and waning during this time but became severe this evening and located mostly right lower quadrant. Patient complains of nausea but denies any vomiting. Patient in emergency for evaluation to first rule out appendicitis. Patient workup has included CT scan and pelvic ultrasound which essentially normal except with the presence of a nonobstructing left renal stone. Patient does that she has a history of interstitial cystitis and presently being treated. Past History Past Medical History: kidney stones, other (interstitial cystitis) Past Surgical History: other (cystoscopy laparoscopic bilateral tubal ligation) CARGO AGENT History: other (patient last Pap smear was November 2018). denies: abnormal PAP smear Social history: , full code Medications and Allergies Allergies Allergy/AdvReac Type Severity Reaction Status Date / Time latex Allergy Itching Verified 07/08/18 14:28 prednisone Allergy Itching Verified 07/08/18 14:30 Home Medications Medication Instructions Recorded Confirmed Last Taken Type Ibuprofen [Motrin 600 MG tab] 600 mg PO Q8H PRN #20 tablet 07/08/18 Unknown Rx traMADol [Ultram 50 MG tab] 50 mg PO Q6HR PRN #12 tablet 07/08/18 Unknown Rx Sulfamethoxazole/Trimethoprim 1 each PO BID 3 Days #6 tablet 01/05/19 Unknown Rx [Bactrim DS TAB] Review of Systems Gastrointestinal: abdominal pain, nausea Genitourinary: deferred Rectal Exam: deferred - Vital Signs Vital signs: Vital Signs Temp Pulse Resp BP Pulse Ox 98.6 F 89 16 142/102 100 01/14/19 19:47 01/14/19 19:47 01/14/19 19:47 01/14/19 19:47 01/14/19 19:47 Temp Pulse Resp BP Pulse Ox 98.6 F 78 12 127/97 100 01/14/19 19:47 01/15/19 00:00 01/15/19 00:00 01/15/19 00:00 01/15/19 00:00 - Physical Exam Breasts: Positive: deferred Cardiovascular: Regular rate Lungs: Positive: Normal air movement Abdomen: Positive: normal appearance, soft, tenderness (bilateral lower quadrant worse in the right lower quadrant without rebound) Results Result Diagrams: 01/14/19 20:19 01/14/19 20:19 Abnormal lab results 01/14/19 01/14/19 01/14/19 Range/Units 20:18 20:19 20:19 WBC 13.4 H (4.5-11.0) K/mm3 MCH 26 L (28-32) pg RDW 15.7 H (13.2-15.2) % [place] % (Auto) 8.9 H (0.0-7.3) % [place] # 1.2 H (0.0-0.8) K/mm3 Seg Neutrophils # 9.3 H (1.8-7.7) K/mm3 Sodium 136 L (137-145) mmol/L Glucose 104 H (65-100) mg/dL Albumin 3.8 L (3.9-5) g/dL Ur Specific [place] 1.034 H (1.003-1.030) All other labs normal. Ultrasound: report reviewed CT scan - abdomen: report reviewed CT scan - pelvis: report reviewed Assessment and Plan - Patient Problems (1) Pelvic pain Current Visit: Yes Status: Acute Plan to address problem: Pain was better with time seen her after receiving pain medicine still is very tender on exam. Her imaging studies are essentially normal. Discussed the possibility of endometriosis as a cause her pain. Diagnosis explained to the patient and her . Discuss medical and surgical options. Patient is being admitted to the medicine service for overnight observation and pain control. If Patient continues to improve we'll discuss outpatient treatment for possible endometriosis. Patient pain worsens will consider diagnostic laparoscopy. The procedure described in detail the patient and all questions answered. We'll follow the patient with you. (2) Intractable right lower quadrant abdominal pain Current Visit: Yes Status: Acute Plan to address problem: Possibly secondary to endometriosis with the possibility secondary to her interstitial cystitis (3) Interstitial cystitis (chronic) without hematuria Current Visit: Yes Status: Chronic Plan to address problem: Possible cause of patient's pain will continue to observe and consider follow-up as outpatient with her urologist.
[2019-01-15] MEDS ORDERED: TORADOL IV ONE (01:52)
[2019-01-15] MEDS ORDERED: ZOFRAN IV PRN (01:57)
[2019-01-15] MEDS ORDERED: TYLENOL PO PRN (01:57)
[2019-01-15] MEDS ORDERED: SODIUM CHLORIDE FLUSH SYRINGE 10 ML IV PRN (01:57)
[2019-01-15] MEDS ORDERED: NACL 0.45% 1000 ML 1,000 ML IV SCH (02:00)
--- NOTE | 2019-01-15 02:05 | History and Physical Report ---
History of Present Illness Date of examination: 01/15/19 History of present illness: 39 -year-old history of interstitial cystitis, fibromyalgia, emergency room with complaints of abdominal pain. Abdominal pain is in the right lower quadrant which she describes as a sharp pain, constant, intensity 8/10, radiating all o ayden her stomach, believe with pain medication given in the emergency room. Denies nausea vomiting, diarrhea Review of systems Constitutional: no weight loss, chills, fever Ears, eyes, nose, mouth and throat: no nasal congestion, no nasal discharge, no sinus pressure, no vision change, no red eye. Neck: No neck pain or rigidity. Cardiovascular: no palpitations, chest pain Respiratory: no cough, shortness of breath Gastrointestinal: no hematochezia Genitourinary : no frequency , no hematuria Musculoskeletal: no joint swelling or muscle ache Integumentary: no rash, no pruritis Neurological: no parathesias, no focal weakness Endocrine: no cold or heat intolerance, no polyuria or polydipsia Hematologic/Lymphatic: no easy bruising, no easy bleeding, no gland swelling Allergic/Immunologic: no urticaria, no angioedema. PAST MEDICAL HISTORY:interstitial cystitis, fibromyalgia, PAST SURGICAL HISTORY: None SOCIAL HISTORY: Denies alcohol, drugs, tobacco FAMILY HISTORY: Hypertension Past History Social history: , full code Medications and Allergies Allergies Allergy/AdvReac Type Severity Reaction Status Date / Time latex Allergy Itching Verified 07/08/18 14:28 prednisone Allergy Itching Verified 07/08/18 14:30 Home Medications Medication Instructions Recorded Confirmed Last Taken Type Promethazine [Phenergan TAB] 25 mg PO Q8HR PRN #10 tab 01/15/19 Unknown Rx Active Meds: Active Medications Acetaminophen (Tylenol) 650 mg PO Q4H PRN PRN Reason: Pain MILD(1-3)/Fever >100.5/PEDERSON Enoxaparin Sodium (Lovenox) 30 mg SUB-Q QDAY EMMA Sodium Chloride (Nacl 0.45% 1000 Ml) 1,000 mls @ 75 mls/hr IV DIRECT EMMA Morphine Sulfate (Morphine) 2 mg IV Q4H PRN PRN Reason: Pain, Moderate (4-6) Ondansetron HCl (Zofran) 4 mg IV Q4H PRN PRN Reason: Nausea And Vomiting Sodium Chloride (Sodium Chloride Flush Syringe 10 Ml) 10 ml IV BID EMMA Sodium Chloride (Sodium Chloride Flush Syringe 10 Ml) 10 ml IV PRN PRN PRN Reason: LINE FLUSH Exam - Physical Exam Narrative exam: General Apperance: The patient lying in bed, breathing comfortable HEENT: Normocephalic, atraumatic. Pupils equally round and reactive to light, EOMI, no sclericterus or JVD or thyromegaly or nodule. , no carotid bruit, mucous membranes moist, no exudate or erythema Heart: S1-S2, regular is rhythm Lungs: Clear to auscultation bilaterally, breathing comfortable Abdomen: Positive bowel sounds, soft, tender right lower quadrant, nondistended, no organomegaly Extremities: No edema cyanosis clubbing Skin: no rash, nodule, warm and dry Neuro: cranial nerves 2-12 intact, speech is fluent, motor/sensory intact - Constitutional Vitals: Temp Pulse Resp BP Pulse Ox 98.6 F 78 12 127/97 100 01/14/19 19:47 01/15/19 00:00 01/15/19 00:00 01/15/19 00:00 01/15/19 00:00 Results - Labs CBC & Chem 7: 01/15/19 04:56 01/15/19 04:56 Labs: Abnormal lab results 01/14/19 01/14/19 01/14/19 Range/Units 20:18 20:19 20:19 WBC 13.4 H (4.5-11.0) K/mm3 MCH 26 L (28-32) pg RDW 15.7 H (13.2-15.2) % [place] % (Auto) 8.9 H (0.0-7.3) % [place] # 1.2 H (0.0-0.8) K/mm3 Seg Neutrophils # 9.3 H (1.8-7.7) K/mm3 Sodium 136 L (137-145) mmol/L Glucose 104 H (65-100) mg/dL Albumin 3.8 L (3.9-5) g/dL Ur Specific [place] 1.034 H (1.003-1.030) - Imaging and Cardiology CT scan - abdomen: report reviewed CT scan - pelvis: report reviewed Assessment and Plan Transvaginal ultrasound. Assessment Abdominal pain, intractable Leukocytosis interstitial cystitis fibromyalgia Plan Admit to medicine Start IV fluid, IV morphine Surgery and DRAFTER SEISMOGRAPH was consulted for the patient no sign of infection, hold antibiotics DVT prophylaxis
[2019-01-15] MEDS: MORPHINE IV PRN ×3 (05:06→12:27)
[2019-01-15 05:28] LABS: Basophils % (Auto) 0.3 % (0.0-1.8); Eosinophils # (Auto) 0.2 K/mm3 (0.0-0.4); Eosinophils % (Auto) 2.6 % (0.0-4.3); Hematocrit 35.7 % (30.3-42.9); Hemoglobin 11.6 gm/dl (10.1-14.3); Lymphocytes # (Auto) 2.4 K/mm3 (1.2-5.4); Lymphocytes % (Auto) 26.5 % (13.4-35.0); Mean Corpuscular HGB Conc 32 % (30-34); Mean Corpuscular Volume 82 fl (79-97); Monocytes % (Auto) 10.7 % (0.0-7.3); Platelet Count 266 K/mm3 (140-440); Red Blood Count 4.33 M/mm3 (3.65-5.03)
[2019-01-15 06:45] LABS: BUN/Creatinine Ratio 12; Blood Urea Nitrogen 7 mg/dL (7-17); Hemolysis Index 2
--- NOTE | 2019-01-15 09:00 | Consultation ---
History of Present Illness Consult date: 01/15/19 Requesting physician: CELESTE HADDAD Chief complaint: lower abdominal pain - History of present illness History of present illness: 38yo F with 2 year h/o recurrent lower abdominal pain presents with acute worsening. Has been managed by Maintenance Service Technician as outpt. Preliminary dx was endometriosis. Was treated unsuccessfully with oral controll pills for 9 months. Plan was to do dx lap after that, but the Maintenance Service Technician retired. Next Maintenance Service Technician do not do much. Has been having pain now for last 1 week. also having low grade fevers. Pain has now resolved. Feels better now. This is the typical pattern. Past History Past Medical History: other (interstitial cystitis, renal stones) Past Surgical History: Other (tubal ligation) Social history: , full code. denies: smoking, alcohol abuse, prescription drug abuse, IV drug use Family history: no significant family history Medications and Allergies Allergies Allergy/AdvReac Type Severity Reaction Status Date / Time latex Allergy Itching Verified 07/08/18 14:28 prednisone Allergy Itching Verified 07/08/18 14:30 Active Meds: Active Medications Acetaminophen (Tylenol) 650 mg PO Q4H PRN PRN Reason: Pain MILD(1-3)/Fever >100.5/[place]ERSON Enoxaparin Sodium (Lovenox) 40 mg SUB-Q QDAY@1000 EMMA Sodium Chloride (Nacl 0.45% 1000 Ml) 1,000 mls @ 75 mls/hr IV DIRECT EMMA Last Admin: 01/15/19 05:02 Dose: 75 mls/hr Documented by: Morphine Sulfate (Morphine) 2 mg IV Q4H PRN PRN Reason: Pain, Moderate (4-6) Last Admin: 01/15/19 05:06 Dose: 2 mg Documented by: Ondansetron HCl (Zofran) 4 mg IV Q4H PRN PRN Reason: Nausea And Vomiting Sodium Chloride (Sodium Chloride Flush Syringe 10 Ml) 10 ml IV BID EMMA Sodium Chloride (Sodium Chloride Flush Syringe 10 Ml) 10 ml IV PRN PRN PRN Reason: LINE FLUSH Last Admin: 01/15/19 05:09 Dose: 10 ml Documented by: Review of Systems - Constitutional fever (low grade), chronic pain (intermittent, recurrent), no chills - Cardiovascular no chest pain, no shortness of breath - Respiratory no cough - Gastrointestinal abdominal pain, no nausea, no vomiting, no change in bowel habits, no maikol temesis, no coffee ground emesis, no BRBPR, no melena, no hematochezia, no dyspepsia/bloating - Genitourinary Genitourinary: pelvic pain, no dysuria Menstruation: no currently menstrual - Muskuloskeletal no low back pain - Integumentary no rash, no pruritis, no redness, no sores, no wounds Exam Vital Signs Temp Pulse Resp BP Pulse Ox 98.6 F 89 16 142/102 100 01/14/19 19:47 01/14/19 19:47 01/14/19 19:47 01/14/19 19:47 01/14/19 19:47 - General physical appearance Positive: no distress, no pain, other (looks well. pleasant) - Eyes Positive: normal occular movement. Negative: icteric - Respiratory Positive: normal expansion, normal respiratory effort, clear to auscultation - Cardiovascular Rhythm: regular - Abdomen Abdomen: Present: soft, tender (mild in pelvic area. Main area was suprapubic), bowel sounds hypoactive. Absent: distended, guarding, rigid, wound - Integumentary no rash, no growths, no abnormal pigmentation - Neurologic Neurologic: alert and oriented to time, place and person, motor strength and sensation are grossly intact - Psychiatric Psychiatric: appropriate mood/affect, intact judgment & insight Results - Labs 01/15/19 04:56 01/15/19 04:56 Abnormal lab results 01/14/19 01/14/19 01/14/19 Range/Units 20:18 20:19 20:19 WBC 13.4 H (4.5-11.0) K/mm3 MCH 26 L (28-32) pg RDW 15.7 H (13.2-15.2) % [place] % (Auto) 8.9 H (0.0-7.3) % [place] # 1.2 H (0.0-0.8) K/mm3 Seg Neutrophils # 9.3 H (1.8-7.7) K/mm3 Sodium 136 L (137-145) mmol/L Creatinine (0.7-1.2) mg/dL Glucose 104 H (65-100) mg/dL Calcium (8.4-10.2) mg/dL Albumin 3.8 L (3.9-5) g/dL Ur Specific [place] 1.034 H (1.003-1.030) 01/15/19 01/15/19 Range/Units 04:56 04:56 WBC (4.5-11.0) K/mm3 MCH 27 L (28-32) pg RDW 16.0 H (13.2-15.2) % [place] % (Auto) 10.7 H (0.0-7.3) % [place] # 1.0 H (0.0-0.8) K/mm3 Seg Neutrophils # (1.8-7.7) K/mm3 Sodium (137-145) mmol/L Creatinine 0.6 L (0.7-1.2) mg/dL Glucose (65-100) mg/dL Calcium 8.0 L (8.4-10.2) mg/dL Albumin (3.9-5) g/dL Ur Specific [place] (1.003-1.030) Diabetes panel 01/14/19 01/15/19 Range/Units 20: 04:56 Sodium 136 L 141 (137-145) mmol/L Potassium 3.8 3.8 (3.6-5.0) mmol/L Chloride 100.1 106.4 (98-107) mmol/L Carbon Dioxide 23 23 (22-30) mmol/L BUN 9 7 (7-17) mg/dL Creatinine 0.7 0.6 L (0.7-1.2) mg/dL Glucose 104 H 95 (65-100) mg/dL Calcium 9.2 8.0 L (8.4-10.2) mg/dL AST 24 (5-40) units/L ALT 29 (7-56) units/L Alkaline Phosphatase 63 (35-129) units/L Total Protein 7.2 (6.3-8.2) g/dL Albumin 3.8 L (3.9-5) g/dL Calcium panel 01/14/19 01/15/19 Range/Units 20:19 04:56 Calcium 9.2 8.0 L (8.4-10.2) mg/dL Albumin 3.8 L (3.9-5) g/dL Pituitary panel 01/14/19 01/15/19 Range/Units 20: 04:56 Sodium 136 L 141 (137-145) mmol/L Potassium 3.8 3.8 (3.6-5.0) mmol/L Chloride 100.1 106.4 (98-107) mmol/L Carbon Dioxide 23 23 (22-30) mmol/L BUN 9 7 (7-17) mg/dL Creatinine 0.7 0.6 L (0.7-1.2) mg/dL Glucose 104 H 95 (65-100) mg/dL Calcium 9.2 8.0 L (8.4-10.2) mg/dL Adrenal panel 01/14/19 01/15/19 Range/Units 20:19 04:56 Sodium 136 L 141 (137-145) mmol/L Potassium 3.8 3.8 (3.6-5.0) mmol/L Chloride 100.1 106.4 (98-107) mmol/L Carbon Dioxide 23 23 (22-30) mmol/L BUN 9 7 (7-17) mg/dL Creatinine 0.7 0.6 L (0.7-1.2) mg/dL Glucose 104 H 95 (65-100) mg/dL Calcium 9.2 8.0 L (8.4-10.2) mg/dL Total Bilirubin 0.20 (0.1-1.2) mg/dL AST 24 (5-40) units/L ALT 29 (7-56) units/L Alkaline Phosphatase 63 (35-129) units/L Total Protein 7.2 (6.3-8.2) g/dL Albumin 3.8 L (3.9-5) g/dL - Imaging CT scan - abdomen: report reviewed, image reviewed CT scan - pelvis: report reviewed, image reviewed US - pelvic: report reviewed Assessment and Plan - Patient Problems (1) Abdominal pain Current Visit: No Status: Acute Qualifiers: Abdominal location: lower abdomen, unspecified Qualified Code(s): R10.30 - Lower abdominal pain, unspecified Plan to address problem: Pt stable. This is a chronic, intermittent pain that has been managed as endometriosis in the past. Pattern is same, but the intensity was more this time. Pain has essentially resolved now. There are no inflammatory changes in the RLQ to suggest intestinal/appendiceal etiology. Agree with Dr. Lozoya's plan of out-pt eval and management. No surgical intervention recommend at this time. Ok to d/c home from my standpoint. Spoke with Dr. Schmitz. Please call with questions. time=30min
[2019-01-15] MEDS ORDERED: LOVENOX SUB-Q SCH ×2 (10:00)
[2019-01-15] MEDS ORDERED: SODIUM CHLORIDE FLUSH SYRINGE 10 ML IV SCH (10:00)
--- NOTE | 2019-01-15 10:59 | Discharge Summary ---
Providers - Providers Date of Admission: 01/15/19 01:10 Date of discharge: 01/15/19 Attending physician: ADDIS SAMUELS 01/14/19 23:26 Consult to Physician [CONS] Urgent Comment: Dr. Mitchell spoke with Dr. Beaulieu @ [phone] Consulting Provider: JUSTEN BEAULIEU Physician Instructions: Reason For Exam: rlq pain 01/14/19 23:28 Consult to Physician [CONS] Urgent Comment: Dr. Mitchell spoke with Dr. Lozoya @ [id number] Consulting Provider: ARIANE LOZOYA Physician Instructions: Reason For Exam: rlq pain Primary care physician: CUSHION GUM APPLICATOR Hospitalization Reason for admission: abdominal pain Condition: Good Pertinent studies: * CT abdomen/pelvis w/o contrast: Nonobstructing left renal calculus. No acute inflammatory process. Fatty infiltration of the liver. * Pelvis US TV: Multiple nabothian cysts visualized as described. The largest measures 1.2 cm. Endometrial stripe is mildly thickened although otherwise is unremarkable.. Right ovary is not visualized. No abnormal adnexal masses are seen in the right. Left ovary is unremarkable. * US pelvis complete: Normal uterus and left ovary. There is no left ovarian torsion. The right ovary is not identified.. Hospital course: 38yo F with 2 year h/o endometriosis, interstitial cystitis, fibromyalgia and recurrent lower abdominal pain presented with worsening abdominal pain. She was being managed by Material Handling Supervisor as outpt for endometriosis and Was treated unsuccessfully with oral controll pills for 9 months. Plan was to do dx lap after that, but her vaishnavi/Material Handling Supervisor retired. She stated that Has been having abdominal pain now for last 1 week with some low grade fevers. In the ER she had Ct abdomen/pelvis then pelvic US which didnot show any acute process. Obg/torch cutter and GS evaluated her and recommended pain control as needed and outpt followup. Patient was tolerating diet with some mild nausea. She was discharged home in stable condition with out patient follow up. Discharge diagnosis: Abdominal pain, intractable - likely from endometriosis vs underlying interstitial cystitis Leukocytosis, reactive, resolved Interstitial cystitis, outpt followup with urologist Fibromyalgia, stable Disposition: - TO HOME OR SELFCARE Time spent for discharge: 34 minutes Core Measure Documentation - Palliative Care Palliative Care/ Comfort Measures: Not Applicable - Core Measures Any of the following diagnoses?: none Exam - Constitutional Vitals: Temp Pulse Resp BP Pulse Ox 97.9 F 72 18 137/77 96 01/15/19 03:53 01/15/19 03:53 01/15/19 03:53 01/15/19 03:53 01/15/19 08:10 General appearance: Present: no acute distress, obese - EENT Eyes: Present: PERRL ENT: hearing intact, clear oral mucosa - Neck Neck: Present: supple, normal ROM - Respiratory Respiratory effort: normal Respiratory: bilateral: CTA - Cardiovascular Heart Sounds: Present: S1 & S2. Absent: rub, click - Extremities Extremities: pulses symmetrical, No edema Peripheral Pulses: within normal limits - Abdominal General gastrointestinal: Present: soft, non-tender, non-distended, normal bowel sounds - Integumentary Integumentary: Present: clear, warm, dry - Musculoskeletal Musculoskeletal: gait normal, strength equal bilaterally - Psychiatric Psychiatric: appropriate mood/affect, intact judgment & insight - Neurologic Neurologic: CNII-XII intact, moves all extremities Plan Activity: advance as tolerated Weight Bearing Status: Weight Bear as Tolerated Diet: low fat Follow up with: ARIANE LOZOYA MD [Staff Physician] - 01/21/19 9:00 am ([place]) PRIMARY CAREMD [Referring] - 3-5 Days Prescriptions: Promethazine [Phenergan TAB] 25 mg PO Q8HR PRN #10 tab PRN Reason: Nausea
--- NOTE | 2019-01-15 12:24 | Progress Note ---
Assessment and Plan - Patient Problems (1) Pelvic pain Current Visit: Yes Status: Chronic Plan to address problem: TVUS results discussed. Explained possible intermittent ovarian torsion however no evidence of acute surgical abdomen at this time. Options reviewed, she decline repeat TVUS at this time. Recommend observation for now, precautions given. Allow home. Patient voiced understanding and agrees with plan of care (2) Interstitial cystitis (chronic) without hematuria Current Visit: Yes Status: Chronic (3) Abdominal pain Current Visit: No Status: Acute Qualifiers: Abdominal location: lower abdomen, unspecified Qualified Code(s): R10.30 - Lower abdominal pain, unspecified Subjective - Subjective Date of service: 01/15/19 Principal diagnosis: RLQ pain Interval history: From earlier this am, patient staes she felt much better , only RLQ soreness now Patient reports: appetite normal, pain well controlled, ambulating normally Objective - Vital Signs Latest vital signs: Vital Signs Temp Pulse Resp BP BP Pulse Ox 01/15/19 08:10 96 01/15/19 03:53 97.9 F 72 18 137/77 97 01/15/19 03:49 20 95 01/15/19 03:31 70 14 138/81 98 01/15/19 03:21 71 11 L 138/81 96 01/15/19 03:00 76 10 L 123/76 96 01/15/19 02:00 64 9 L 138/81 98 01/15/19 01:01 68 10 L 129/87 98 01/15/19 00:03 74 9 L 127/97 100 01/15/19 00:00 78 12 127/97 100 01/14/19 21:00 78 9 L 143/98 100 01/14/19 20:15 80 15 137/90 98 01/14/19 19:47 98.6 F 89 16 142/102 100 Intake and Output 01/14/19 01/15/19 01/15/19 22:59 06:59 14:59 Intake Total 10 10 Balance 10 10 Intake: IV 10 10 Left Antecubital 10 10 Other: Voiding Method Toilet Weight 72.575 kg 97.9 kg - Exam Abdomen: Present: normal appearance, soft. Absent: tenderness - Labs Labs: Abnormal lab results 01/14/19 01/14/19 01/14/19 Range/Units 20:18 20:19 20:19 WBC 13.4 H (4.5-11.0) K/mm3 MCH 26 L (28-32) pg RDW 15.7 H (13.2-15.2) % [place] % (Auto) 8.9 H (0.0-7.3) % [place] # 1.2 H (0.0-0.8) K/mm3 Seg Neutrophils # 9.3 H (1.8-7.7) K/mm3 Sodium 136 L (137-145) mmol/L Creatinine (0.7-1.2) mg/dL Glucose 104 H (65-100) mg/dL Calcium (8.4-10.2) mg/dL Albumin 3.8 L (3.9-5) g/dL Ur Specific [place] 1.034 H (1.003-1.030) 01/15/19 01/15/19 Range/Units 04:56 04:56 WBC (4.5-11.0) K/mm3 MCH 27 L (28-32) pg RDW 16.0 H (13.2-15.2) % [place] % (Auto) 10.7 H (0.0-7.3) % [place] # 1.0 H (0.0-0.8) K/mm3 Seg Neutrophils # (1.8-7.7) K/mm3 Sodium (137-145) mmol/L Creatinine 0.6 L (0.7-1.2) mg/dL Glucose (65-100) mg/dL Calcium 8.0 L (8.4-10.2) mg/dL Albumin (3.9-5) g/dL Ur Specific [place] (1.003-1.030)
[2019-01-15 12:40] VITALS: BP 128/87
== END 2019-01-15 13:13 | disposition home or self-care (01) ==
LOC: EEVIPCON 19:33 → ED 19:33 → INTOOBSV 01-15 01:10 → 3A 01-15 01:10
PROVIDERS: ADMIT Internal Medicine; ATTEND Internal Medicine
DX: R10.30 Lower abdominal pain, unspecified (principal); D72.829 Elevated white blood cell count, unspecified; N30.10 Interstitial cystitis (chronic) without hematuria; M79.7 Fibromyalgia; Z82.49 Family history of ischemic heart disease and other diseases of the circulatory system; Z87.442 Personal history of urinary calculi
CPT/HCPCS: 36415; 74178; 76830; 80048; 80053; 81001; 82140; 82550; 84702; 85025; 85610; 85730; 87210; 87591; 93005; 93010; 93975; 96374; 96375; 96376; 99284; G0378; J1170; J1885; J2001; J2270; J2405; J3010; J7030; Q9967; J1650

== ENCOUNTER 2019-01-27 09:06 | Day surgery (SDC) | payer OTHER ==
--- NOTE | 2019-01-26 12:46 | History and Physical Report ---
History of Present Illness Date of examination: 01/21/19 Chief complaint: Pelvic pain. History of present illness: This is a 39 years old female who presents with pelvic pain. The onset of symptoms began 1 week ago. The patient presents with RLQ pain, but denies fever, chills, LLQ pain, vaginal discharge, abnormal vaginal bleeding, amenorrhea, back pain, flank pain, urinary frequency and urinary urgency. Patient also complains of nausea and vomiting. The patient denies any rash, myalgias, arthralgias, dysuria, diarrhea, constipation, headache, weight gain, genital sores and inguinal swelling. States she's had a lomg history of pelvoc pain and was considering a diagnostic l'scopy however her WEEKEND CAREGIVER retired, she had an acute severe episode of pain last week and was hospitalized. Work up was negative and pain significantly improved with rest and analgesia. Still w/ pain now that's worse with activity. Usually worse at night and occura ~3x/d. She's used LIZBET's in the past with no relief. Vital Signs: Patient Profile: 39 Years Old Female LMP: 01/08/2019 Height: 63 inches Weight: 210 pounds BMI: 37.20 BP sittin / 60 (left arm) Menstrual History: LMP (date): 01/08/2019 LMP - Character: normal Menarche: 8 Menses interval: 30 days Menstrual flow: 4 days On BCP's at conception: no Current Method of Contraception: BTL Date of Last Pap Smear: 11/28/2018 Past History : 3 Term Births: 3 Living Children: 3 # 1 Delivery date: 2000 Delivery type: # 2 Delivery type: # 3 Delivery type: WEEKEND CAREGIVER History Operations: Tubal Ligation Abnormal PAP: negative Infection History HIV Risk Eval: no Hx of STD: None Active Medications: AMITRIPTYLINE HCL TABLET (AMITRIPTYLINE HCL TABS) HYDROXYZINE HCL 25 MG ORAL TABLET (HYDROXYZINE HCL) ELMIRON CAPSULE (PENTOSAN POLYSULFATE SODIUM CAPS) PERCOCET TABLET (OXYCODONE-ACETAMINOPHEN TABS) Current Allergies (reviewed today): No known allergies Past Medical History: IC Past Surgical History: Tubal Ligation Family History Summary: Other family member - Has No Family History of Uterine Cancer - Entered On: 01/24/2019 Other family member - Has No Family History of Stomach Cancer - Entered On: 01/24/2019 Other family member - Has No Family History of Spontaneous DVT-PE - Entered On: 01/24/2019 Other family member - Has No Family History of Small Bowel Cancer - Entered On: 01/24/2019 Other family member - Has No Family History of Pancreatic Cancer - Entered On: 01/24/2019 Other family member - Has No Family History of Ovarvian Cancer - Entered On: 01/24/2019 Other family member - Has No Family History of Kidney/Urinary Tract Cancer - Entered On: 01/24/2019 Other family member - Has No Family History of Colon Cancer - Entered On: 01/24/2019 Other family member - Has No Family History of Breast Cancer - Entered On: 01/24/2019 Other family member - Has No Family History of Brain Cancer - Entered On: 01/24/2019 Other family member - Has No Family History of Biliary Tract Cancer - Entered On: 01/24/2019 Social History: Patient is Smoking History: Patient has never smoked. Risk Factors: Smoked Tobacco Use: Never smoker Smokeless Tobacco Use: Never Passive smoke exposure: no Drug use: no HIV high-risk behavior: no Caffeine use: 1 drinks per day Alcohol use: yes Type: occ Drinks per day: social Exercise: no Seatbelt use: 100 % PAP Smear History: Date of Last PAP Smear: 11/28/2018 Previous Tobacco Use: Previous Alcohol Use: PAP Smear History: Date of Last PAP Smear: 11/28/2018 Physical Exam Appearance: well developed, well nourished, no acute distress Other Exams Breast exam: no masses or nipple discharge Abdomen: soft, no masses, bowel sounds normal; obese Appearance: obese Skin: no ulcers, xanthomas Lymph: no inguinal adenopathy Extremities: no edema Genitourinary Exam Vulva: normal, no lesions or discharge Urethral meatus: normal size and location, no lesions or discharge Urethra: no discharge Bladder: no cystocele Vagina: normal appearance, no discharge, lesions. No evidence of cystocele or rectocele. Cervix: normal appearance, no lesions, no discharge Uterus: unable to palpate Adnexa: unable to palpate due to guarding Impression & Recommendations: Problem # 1: Pelvic and perineal pain (ICD-789.00) ([id number]) WEEKEND CAREGIVER Transvaginal US ([id number]) Results discussed with patient Questionable flow on (R) ovary. No evidence of surgical abdomen today. Diagnosis discussed. In spite of US, clinical picture not c/w ovarian torsion however she was informed of likelihood of worsening pain and oophorectomy if indeed torsion is present. Differential diagnoses discussed as well: IC exacerbation, endometriosis. Discussed dx lsc and limitations. She desires to proceed with dx lsc, she was informed she may have to have her ovary removed. Discussed gnrh agonist/hormonal therapy. It was extensively explained to her that her pain may persist, recur or change in nature due to the difficulty with diagnosis chronic pelvic pain or development of adhesions. She declined other treatment options at this time. She voiced understanding. Consent reviewed and signed . Possible laparoscopy or laparotomy explained to patient. The risks and alternatives for this surgery were reviewed with the patient. She was informed of possible bleeding, infection, injury to bowel, bladder, ureters or other adjacent organs. The patient was instructed/informed the following: The normal length of hospital stay for this procedure. Nothing to eat or drink after midnight the evening prior to surgery. Clear liquids the day before surgery. Fleets enema the day prior to surgery. Pre-op instruction sheets given. Wound care instructions given. Infection precautions reviewed, patient to call for any signs or symptoms of infection. The usual discomforts associated with this procedure were detailed.. Patient was given ample opportunity to have all her questions answered before signing informed consent. Medications Added to Medication List This Visit: 1) Amitriptyline Hcl Tablet (Amitriptyline hcl tabs) 2) Hydroxyzine Hcl 25 Mg Oral Tablet (Hydroxyzine hcl) 3) Elmiron Capsule (Pentosan polysulfate sodium caps) 4) Percocet Tablet (Oxycodone-acetaminophen tabs) Medications and Allergies Allergies Allergy/AdvReac Type Severity Reaction Status Date / Time latex Allergy Itching Verified 07/08/18 14:28 prednisone Allergy Itching Verified 07/08/18 14:30 Home Medications Medication Instructions Recorded Confirmed Last Taken Type Promethazine [Phenergan TAB] 25 mg PO Q8HR PRN #10 tab 01/15/19 Unknown Rx Assessment and Plan - Patient Problems (1) Pelvic pain Status: Chronic
[~2019-01-27 09:06] MED LIST: ANCEF/STERILE WATER 2 GM/20 ML 2 GM/20 ML SYRINGE IV NR
[2019-01-27] MEDS ORDERED: LACTATED RINGERS 1,000 ML IV SCH (10:00)
--- NOTE | 2019-01-27 10:20 | Anesthesia Consultation ---
Anesthesia Consult and Med Hx Date of service: 01/27/19 - Airway Anesthetic Teeth Evaluation: Good ROM Head & Neck: Adequate Mental/Hyoid Distance: Adequate Mallampati Class: Class II Intubation Access Assessment: Probably Good - Pulmonary Exam CTA: Yes - Cardiac Exam Cardiac Exam: RRR - Pre-Operative Health Status ASA Pre-Surgery Classification: ASA2 Proposed Anesthetic Plan: General - Pulmonary Hx Smoking: No Hx Respiratory Symptoms: Yes (nonproductive cough; related to seasonal allergied per patient) SOB: No - Cardiovascular System Hx Hypertension: No Hx Heart Attack/AMI: No Hx Percutaneous Transluminal Coronary Angioplasty (PTCA): No Hx Cardia Arrhythmia: No - Central Nervous System CVA: No Hx Back Pain: Yes (fibromyalgia) Hx Psychiatric Problems: No - Gastrointestinal Hx Gastroesophageal Reflux Disease: No - Endocrine Hx Renal Disease: No Hx Liver Disease: No Hx Insulin Dependent Diabetes: No Hx Non-Insulin Dependent Diabetes: No Hx Thyroid Disease: No - Hematic Hx Anemia: Yes (mild) - Other Systems Hx Obesity: Yes - Additional Comments Anesthesia Medical History Comments: No hx anesthetic complications.
--- NOTE | 2019-01-27 10:21 | Anesthesia Day of Surgery ---
Anesthesia Day of Surgery - Day of Surgery Patient Examined: Yes Patient H&P Reviewed: Yes Patient is NPO: Yes
[2019-01-27] MEDS ORDERED: DILAUDID ONE (10:46)
[2019-01-27] MEDS ORDERED: DIPRIVAN 10 MG/ML IV ONE (10:47)
[2019-01-27] MEDS ORDERED: XYLOCAINE MPF 2% ONE (10:47)
[2019-01-27] MEDS ORDERED: ZEMURON IV ONE (10:47)
[2019-01-27 10:53] LABS: Hematocrit 39.9 % (30.3-42.9); Hemoglobin 13.1 gm/dl (10.1-14.3); Mean Corpuscular HGB Conc 33 % (30-34); Mean Corpuscular Volume 82 fl (79-97); Platelet Count 282 K/mm3 (140-440); Red Blood Count 4.89 M/mm3 (3.65-5.03); Red Cell Distribution Width 15.2 % (13.2-15.2)
[2019-01-27] MEDS ORDERED: MARCAINE 0.5% INFILTRATI ONE ×2 (10:59→12:00)
[2019-01-27] MEDS ORDERED: VERSED IV NR (11:00)
[2019-01-27] MEDS ORDERED: NEURONTIN PO NR (11:00)
[2019-01-27] MEDS ORDERED: BLOXIVERZ ONE (12:00)
[2019-01-27] MEDS ORDERED: ZOFRAN ONE (12:00)
[2019-01-27] MEDS ORDERED: NACL 0.9% IR ONE (12:00)
[2019-01-27] MEDS ORDERED: ROBINUL ONE ×2 (12:00→12:01)
[2019-01-27] MEDS ORDERED: TORADOL ONE (12:00)
[2019-01-27] MEDS: DILAUDID IV PRN ×3 (12:15→13:10)
--- NOTE | 2019-01-27 12:15 | Operative Report ---
Operative Report Operative Report: Date: 01/27/2019 Preoperative diagnosis: 1. Pelvic pain 2. Possible ovarian torsion Postoperative diagnosis: 1. Pelvic pain Procedure: Diagnostic laparoscopy Surgeon: Alka Victor MD Bench Inspector: [] Anesthesiologist: [] Anesthesia: Gen. endotracheal anesthesia EBL: Minimal Findings: Grossly normal uterus and ovaries. Interrupted fallopian tubes consistent with sterilization Procedure: After risks, benefits, consequences, alternatives and complications were discussed patient voiced her understanding and desire to proceed, she was taken to the OR and placed in the supine position. After general anesthesia was induced, she was placed in the dorsal lithotomy position. Exam under anesthesia was unremarkable. She was then prepped and draped in the usual sterile fashion. After a timeout was performed, a Webb catheter was introduced into the bladder with drainage of clear yellow urine. A operative speculum was introduced into the vagina, and anterior lip cervix was grasped with a single- toothed tenaculum. The uterus was sounded to 8 cm. The cervix was progressive ly dilated to allow the [email or web address] uterine manipulator. The tenaculum and speculum were removed. Sterile gloves were placed and attention was turned to the abdomen. An supraumbilical incision was made and a 5 mm Optiview trocar with scope and camera attached were placed through the incision. The abdomen was entered under direct visualization. The abdomen was then insufflated. No bowel, bladder, ureteral, or major vessel injury was noted. She was then placed in steep Trendelenburg position. The above findings were noted. An additional 5 mm trocar was placed through a suprapubic midline incision made approximately 2 cm superior to the symphysis pubis. A 5 mm trocar was introduced under direct visualization. No bowel, bladder or ureteral or major vascular injury was noted. The uterus was elevated, on extensive inspection of the pelvis no obvious evidence of endometriosis was noted. Grossly normal appearing bilateral ovaries with no evidence of ovarian torsion. No obvious evidence of inflammation of the appendix was noted.The posterior cul-de-sac, pelvic sidewalls and anterior cul-de-sac were visualized. No obvious evidence of endometriosis or abnormalities were noted. At this point the procedure was ended. The remaining CO2 in the abdomen was released. Patient was taken out of Trendelenburg position. The incisions were reapproximated using 4-0 Vicryl in a subcuticular manner. The incisions were then infused with half percent Marcaine without epinephrine. Then attention was turned to the vagina where the uterine manipulator was removed. No bleeding was noted from the vagina. The Webb catheter was then removed, clear yellow urine was noted to drain into the Webb tubing as well as into the Webb bag. Counts were correct 3 patient tolerated procedure well was taken to recovery in stable condition
--- NOTE | 2019-01-27 12:19 | Discharge Summary ---
Providers - Providers Date of discharge: 01/27/19 Attending physician: KULWINDER GARCIA Hospitalization Condition: Good Procedures: Diagnostic Laparoscopy Hospital course: No problem at assessment Disposition: DC-01 TO HOME OR SELFCARE - Discharge Diagnoses (1) Pelvic pain Status: Chronic Core Measure Documentation - Palliative Care Palliative Care/ Comfort Measures: Not Applicable - Core Measures Any of the following diagnoses?: none Exam - Constitutional Vitals: Temp Pulse Resp BP Pulse Ox 99.5 F 61 16 134/77 98 01/27/19 09:35 01/27/19 09:35 01/27/19 10:40 01/27/19 09:35 01/27/19 09:35 General appearance: Present: no acute distress - Respiratory Respiratory effort: normal - Cardiovascular Rhythm: regular Plan Activity: other (no sex. no driving for 48hours) Weight Bearing Status: Full Weight Bearing Diet: regular Wound: open to air, keep clean and dry Special Instructions: no heavy lifting (greater than 25lbs) Follow up with: VIJAYA EASTON [Other] - 7 Days KULWINDER GARCIA MD [Staff Physician] - (As scheduled)
[2019-01-27] MEDS ORDERED: DEMEROL IV PRN (12:57)
[2019-01-27 13:08] VITALS: BP 114/63
[2019-01-27] MEDS ORDERED: PERCOCET 5/325 ONE (13:29)
[2019-01-27] MEDS ORDERED: NORCO 5/325 PO PRN (13:33)
--- NOTE | 2019-01-27 16:44 | Post Anesthesia Evaluation ---
- Post Anesthesia Evaluation Patient Participated: Yes Airway Patent: Yes Stable Respiratory Function: Yes Nausea/Vomiting: No Temp > 96.8F: Yes Pain Manageable: Yes Adequeate Hydration: Yes Anesthesia Complications: No
== END 2019-01-28 08:05 | disposition home or self-care (01) ==
LOC: OR 09:06
PROVIDERS: ATTEND Obstetrics & Gynecology
DX: R10.2 Pelvic and perineal pain (principal); R10.31 Right lower quadrant pain; N30.10 Interstitial cystitis (chronic) without hematuria; E66.9 Obesity, unspecified; Z68.38 Body mass index [BMI] 38.0-38.9, adult; Z98.51 Tubal ligation status; Z87.442 Personal history of urinary calculi; Z98.890 Other specified postprocedural states; Z83.3 Family history of diabetes mellitus; Z79.899 Other long term (current) drug therapy; Z91.040 Latex allergy status; Z88.8 Allergy status to other drugs, medicaments and biological substances; Z86.2 Personal history of diseases of the blood and blood-forming organs and certain disorders involving the immune mechanism
CPT/HCPCS: 36415; 49320; 81025; 85027; J0690; J1170; J1885; J2175; J2250; J2405; J2704; J2710; J7120